=== PATIENT | female | born 1985 | race African-American/Black ===

== ENCOUNTER 2018-06-17 08:48 | Emergency (ER) | payer SELFPAY ==
[~2018-06-17] VITALS: Ht 165.1 cm; Wt 108.9 kg
[2018-06-17 09:12] VITALS: BP 141/94
[2018-06-17] MEDS ORDERED: NAPROXEN 500 MG TABLET PO STA (09:41)
[2018-06-17] MEDS ORDERED: SMZ/TMP 800/160MG TABLET. PO ONE (09:45)
[2018-06-17] MEDS ORDERED: HYDROcodone/APAP 5/325MG 1 TAB TABLET PO ONE (09:45)
[2018-06-17] MEDS ORDERED: SULF1TAB24 PO (09:50)
[2018-06-17] MEDS ORDERED: DICL50TA4 PO (09:50)
[2018-06-17] MEDS ORDERED: GABA600T7 PO (09:50)
--- NOTE | 2018-06-17 09:51 | PHYS DOC ---
Past Medical History Past Medical History: Asthma Past Surgical History: No Surgical History Alcohol Use: None Drug Use: None Adult General Chief Complaint Chief Complaint: LOWER EXTREMITY SWELLING HPI HPI Patient is a 33 year old female with no significant medical history who presents to the ED today with left lateral foot redness that began 2 days ago. Patient also feels her bilateral feet are swollen. Denies any injury. Denies any chest pain or shortness of breath denies any fever. Denies being on any hormones, denies any hemoptysis. Denies any previous history of DVTs or PEs. Denies any shortness of breath. Review of Systems Review of Systems Constitutional: Denies fever or chills [] Eyes: Denies change in visual acuity, redness, or eye pain [] HENT: Denies nasal congestion or sore throat [] Respiratory: Denies cough or shortness of breath [] Cardiovascular: No additional information not addressed in HPI [] GI: Denies abdominal pain, nausea, vomiting, bloody stools or diarrhea [] : Denies dysuria or hematuria [] Musculoskeletal: Reports left lateral foot redness, the lateral lower extremity swelling. Integument: Denies rash or skin lesions [] Neurologic: Denies headache, focal weakness or sensory changes [] All other systems were reviewed and found to be within normal limits, except as documented in this note. Allergies Allergies Allergies Coded Allergies Type Severity Reaction Last Updated Verified No Known Drug Allergies 05/29/14 No Physical Exam Physical Exam Constitutional: Well developed, well nourished, no acute distress, non-toxic appearance. [] HENT: Normocephalic, atraumatic, bilateral external ears normal, oropharynx moist, no oral exudates, nose normal. [] Eyes: PERRLA, EOMI, conjunctiva normal, no discharge. [] Neck: Normal range of motion, no tenderness, supple, no stridor. [] Cardiovascular:Heart rate regular rhythm, no murmur [] Lungs & Thorax: Bilateral breath sounds clear to auscultation [] Abdomen: Bowel sounds normal, soft, no tenderness, no masses, no pulsatile masses. [] Skin: Warm, dry, no erythema, no rash. [] Back: No tenderness, no CVA tenderness. [] Extremities: No obvious edema noted to bilateral lower extremities, there is slight cellulitis approximately 4 x 4 cm on the left lateral foot, the area is warm, no drainage. Full range of motion to bilateral lower extremities, negative Homans sign to bilateral lower extremities. +2 bilateral pedal pulses. Cap refill less than 2 seconds bilateral lower extremities. Neurologic: Alert and oriented X 3, normal motor function, normal sensory function, no focal deficits noted. [] Psychologic: Affect normal, judgement normal, mood normal. [] Current Patient Data Vital Signs Vital Signs Date Time Temp Pulse Resp B/P (MAP) Pulse Ox O2 Delivery O2 Flow Rate FiO2 06/17/18 09:12 98.8 94 16 141/94 (110) 98 Room Air 98.8 EKG EKG [] Radiology/Procedures Radiology/Procedures [] Course & Med Decision Making Course & Med Decision Making Pertinent Labs and Imaging studies reviewed. (See chart for details) This is a 33-year-old female patient presenting to the ED today with cellulitis on the left lateral foot. Tetanus up-to-date. Discharged on Bactrim for stress given in the ED. Encouraged to elevate bilateral lower extremities. Follow-up with PCP in the course of next week. Dragon Disclaimer Dragon Disclaimer This electronic medical record was generated, in whole or in part, using a voice recognition dictation system. Departure Departure Impression: Primary Impression: Cellulitis of left foot Disposition: 01 HOME, SELF-CARE Condition: STABLE Referrals: NO PCP (PCP) Follow-up with your doctor in one week Patient Instructions: Cellulitis, [id number] Additional Instructions: You were evaluated in the emergency, and noted to have cellulitis on the left lateral foot. Take the prescribed antibiotics until completed. Follow-up with your doctor next week. Come back to the ED at any point symptoms worsen. Scripts Diclofenac Sodium (DICLOFENAC SODIUM) 50 Mg Tablet. 1 TAB PO BID, #30 TAB 0 Refills Prov: CARLOS ALBERTO CRYSTAL APRN 06/17/18 Gabapentin (GABAPENTIN) 600 Mg Tablet 600 MG PO TID for NEUROGENIC PAIN, #30 TAB Prov: CARLOS ALBERTO CRYSTAL APRN 06/17/18 Sulfamethoxazole/Trimethoprim (BACTRIM DS TABLET) 1 Each Tablet 1 TAB PO BID, #20 TAB Prov: CARLOS ALBERTO CRYSTAL APRN 06/17/18 CARLOS ALBERTO CRYSTAL APRN Jun 17, 2018 09:50
== END 2018-06-17 10:04 | disposition home or self-care (01) ==
LOC: ER 08:48
DX: L03.116 Cellulitis of left lower limb (principal); J45.909 Unspecified asthma, uncomplicated
CPT/HCPCS: 99284

== ENCOUNTER 2018-08-04 21:26 | Emergency (ER) | payer SELFPAY ==
[~2018-08-04] VITALS: Ht 165.1 cm; Wt 99.8 kg
[~2018-08-04 21:26] MED LIST: DICL50TA4 PO; GABA600T7 PO; SULF1TAB24 PO
[2018-08-04 21:40] VITALS: BP 162/72
[2018-08-04] MEDS ORDERED: DEXAMETHASONE SOD PHOS 4 MG/ML VIAL IM ONE (22:00)
[2018-08-04] MEDS ORDERED: ACETAMINOPHEN 500 MG TABLET PO ONE (22:00)
[2018-08-04] MEDS ORDERED: AMOX500C PO (22:00)
[2018-08-04] MEDS ORDERED: PRED50TA PO (22:00)
[2018-08-04] MEDS ORDERED: IBUPROFEN 400 MG TABLET. PO ONE (22:00)
--- NOTE | 2018-08-04 22:01 | PHYS DOC ---
Past Medical History Past Medical History: Asthma (PRAMOD CRAIG) Past Surgical History: No Surgical History (PRAMOD CRAIG) Alcohol Use: None Drug Use: None (PRAMOD CRAIG) Adult General Chief Complaint Chief Complaint: FEVER HPI HPI Patient is a 33 year old female presents to the ED complaining of sore throat 2 days ago. Patient states that she developed throat pain while she was at work. Describes the pain as sharp. Rates the pain as 7 out of 10. Associated symptoms include fever. States she has not taken any medications over-the- counter. Denies cough, difficulty swallowing, tongue swelling, lip swelling, chest pain, shortness of breath, nausea/vomiting, conjunctivitis or rash. (PRAMOD CRAIG) Review of Systems Review of Systems Constitutional: Complains of fever. Denies chills [] Eyes: Denies change in visual acuity, redness, or eye pain [] HENT: Complains of sore throat. Denies nasal congestion. Respiratory: Denies cough or shortness of breath [] Cardiovascular: No additional information not addressed in HPI [] GI: Denies abdominal pain, nausea, vomiting, bloody stools or diarrhea [] : Denies dysuria or hematuria [] Musculoskeletal: Denies back pain or joint pain [] Integument: Denies rash or skin lesions [] Neurologic: Denies headache, focal weakness or sensory changes [] All other systems were reviewed and found to be within normal limits, except as documented in this note. (PRAMOD CRAIG) Current Medications Current Medications Current Medications Medications (Trade) Dose Ordered Sig/Cassandra Start Time Stop Time Status Last Admin Dose Admin Acetaminophen (Tylenol) 1,000 mg 1X ONCE 08/04/18 22:00 08/04/18 22:21 DC 08/04/18 22:15 1,000 MG Amoxicillin (Amoxil) 500 mg 1X ONCE 08/04/18 22:30 08/04/18 22:30 DC 08/04/18 22:21 500 MG Dexamethasone Sodium Phosphate (Decadron) 10 mg 1X ONCE 08/04/18 22:00 08/04/18 22:01 DC 08/04/18 22:15 10 MG Ibuprofen (Motrin) 800 mg 1X ONCE 08/04/18 22:00 08/04/18 22:21 DC 08/04/18 22:15 800 MG (DEANA REYNOLDS MD) Allergies Allergies Allergies Coded Allergies Type Severity Reaction Last Updated Verified No Known Drug Allergies 05/29/14 No (DEANA REYNOLDS MD) Physical Exam Physical Exam Constitutional: Well developed, well nourished, no acute distress, non-toxic appearance. [] HENT: Normocephalic, atraumatic, bilateral external ears normal, oropharynx moist, Mild pharyngeal erythema. uvula midline. no exudate. no peritonsillar abscess. nose normal. [] Eyes: PERRLA, EOMI, conjunctiva normal, no discharge. [] Neck: Normal range of motion, no tenderness, supple, no stridor. [] Cardiovascular:Heart rate regular rhythm, no murmur [] Lungs & Thorax: Bilateral breath sounds clear to auscultation [] Skin: Warm, dry, no erythema, no rash. [] Back: No tenderness, no CVA tenderness. [] Extremities: No tenderness, no cyanosis, no clubbing, ROM intact, no edema. [] Neurologic: Alert and oriented X 3, normal motor function, normal sensory function, no focal deficits noted. [] Psychologic: Affect normal, judgement normal, mood normal. [] (PRAMOD CRAIG) Current Patient Data Vital Signs Vital Signs Date Time Temp Pulse Resp B/P (MAP) Pulse Ox O2 Delivery O2 Flow Rate FiO2 08/04/18 21:40 102.1 98 18 162/72 (102) 99 Room Air 102.1 (DEANA REYNOLDS MD) EKG EKG [] (PRAMOD CRAIG) Radiology/Procedures Radiology/Procedures [] (PRAMOD CRAIG) Course & Med Decision Making Course & Med Decision Making Pertinent Labs and Imaging studies reviewed. (See chart for details) []Fever improved in the ED. Patient states she is feeling much better. Tolerating by mouth. Discussed symptomatic treatment and follow-up with PCP if symptoms persist. Discussed reasons to return to the ED. Patient understands and agrees with plan. (PRAMOD CRAIG) Course & Med Decision Making Staff Physician Addendum: I was working in the ER during the course of this patient's visit. I was available for consultation as needed, but I was not directly involved in the care of this patient. (DEANA REYNOLDS MD) Dragon Disclaimer Dragon Disclaimer This electronic medical record was generated, in whole or in part, using a voice recognition dictation system. (PRAMOD CRAIG) Departure Departure Impression: Primary Impression: Pharyngitis Disposition: HOME, SELF-CARE Condition: STABLE Referrals: NO PCP (PCP) PONCHO NEWMAN MD Patient Instructions: Viral and Bacterial Pharyngitis Scripts Prednisone (PREDNISONE) 50 Mg Tablet 1 TAB PO DAILY, #5 TAB Prov: PRAMOD CRAIG 08/04/18 Amoxicillin (AMOXICILLIN) 500 Mg Capsule 1 CAP PO TID for 10 Days, #30 CAP Prov: PRAMOD CRAIG 08/04/18 PRAMOD CRAIG Aug 04, 2018 22:00 DEANA REYNOLDS MD Aug 08, 2018 20:06
[2018-08-04] MEDS ORDERED: AMOXICILLIN 250 MG CAPSULE. PO ONE (22:30)
== END 2018-08-04 22:26 | disposition home or self-care (01) ==
LOC: ER 21:26
DX: J02.9 Acute pharyngitis, unspecified (principal); R50.9 Fever, unspecified; J45.909 Unspecified asthma, uncomplicated
CPT/HCPCS: 96372; 99284; J1100

== ENCOUNTER 2020-03-05 06:10 | Emergency (ER) | payer SELFPAY ==
[~2020-03-05] VITALS: Ht 165.1 cm; Wt 122.7 kg
[~2020-03-05 06:10] MED LIST changes: +AMOX500C PO; +PRED50TA PO
[2020-03-05 06:54] VITALS: BP 167/99
[2020-03-05] MEDS ORDERED: GABA300C18 PO (07:07)
[2020-03-05] MEDS ORDERED: HYDR-3164 PO (07:07)
[2020-03-05] MEDS ORDERED: PRED20TA PO (07:07)
--- NOTE | 2020-03-05 07:08 | PHYS DOC ---
Past Medical History Past Medical History: Asthma Past Surgical History: No Surgical History Smoking Status: Never Smoker Alcohol Use: None Drug Use: None General Adult EDM: Chief Complaint: LOWER EXT PAIN HPI: HPI: Patient is a 35 year old female who presents with left foot swelling and pain since 2300 last night. Pain is a 10/10 with "pins and needles" quality that travels up to knee. Red "spots" present on bilateral legs with pain flare up. Denies trauma, back pain. Patient had similar episode in 2019 and was given Gabapentin. Denies . Review of Systems: Review of Systems: Constitutional: Denies fever or chills Eyes: Denies redness or eye pain HENT: Denies nasal congestion or sore throat Respiratory: Denies cough or shortness of breath Cardiovascular: Denies chest pain or palpitations GI: Denies abdominal pain, nausea, or vomiting : Denies dysuria or hematuria Musculoskeletal: Denies back pain or joint pain; reports left leg pain below knee Integument: Reports red spots that present simultaneously with pain. Neurologic: Denies headache, focal weakness or sensory changes Complete systems were reviewed and found to be within normal limits, except as documented in this note. Allergies: Allergies: Allergies Coded Allergies Type Severity Reaction Last Updated Verified No Known Drug Allergies 05/29/14 No Physical Exam: PE: Constitutional: Well developed, well nourished, no acute distress, non-toxic appearance HENT: Normocephalic, atraumatic Eyes: Conjunctiva normal, no discharge Neck: Normal range of motion, no tenderness, supple Lungs & Thorax: No respiratory distress, equal chest rise and fall Skin: Warm, dry, no erythema, no rash Back: No tenderness, no CVA tenderness Extremities: ROM intact, no edema. Tenderness left LE below knee. Pedal pulses intact bilaterally +2. Cap refill normal bilaterally. Neurologic: Alert and oriented X 3, normal motor function, normal sensory function, no focal deficits noted Psychologic: Affect normal, judgment normal Current Patient Data: Vital Signs: Vital Signs Date Time Temp Pulse Resp B/P (MAP) Pulse Ox O2 Delivery O2 Flow Rate FiO2 03/05/20 06:20 98.3 95 19 154/89 (110) 100 Room Air 98.3 EKG: EKG: [] Radiology/Procedures: Radiology/Procedures: [] Course & Med Decision Making: Course & Med Decision Making Patient is a 35 year old female who presents with left foot swelling and pain. Pain is a 10/10 with "pins and needles" quality that travels up to knee. Red "sp ots" present on bilateral legs with pain flare up. Denies trauma or back pain. No significant edema noted. Distal pulses intact. Symptoms and HPI more likely neuropathy in nature. Patient given oral steroids and ibuprofen. Patient given a script for ofe apentin. Crutches provided for support. Patient stable for discharge with outpatient follow-up with PCP and pain management. Referrals for free pain management clinics provided. Discussed findings and plan with patient, who acknowledges understanding and agreement. [] Dragon Disclaimer: Dragon Disclaimer: This electronic medical record was generated, in whole or in part, using a voice recognition dictation system. Departure Departure Impression: Primary Impression: Neuropathy Disposition: 01 DC HOME SELF CARE/HOMELESS Condition: STABLE Referrals: NO PCP (PCP) RAVINDRA CHATMAN MD Patient Instructions: Crutch Use, [id number], Pain, Neuropathic Additional Instructions: May also use over the counter Ibuprofen for pain and discomfort. Scripts Hydrocodone/Apap 5-325 (NORCO 5-325 TABLET) 1 Each Tablet 0.5-1 TAB PO PRN Q6HRS PRN for PAIN, #10 TAB 0 Refills Prov: PONCHO BETANCOURT DO 03/05/20 Prednisone (PREDNISONE) 20 Mg Tablet 2 TAB PO DAILY, #8 TAB Start tomorrow, Thursday03/06/2020 Prov: PONCHO BETANCOURT DO 03/05/20 Gabapentin (GABAPENTIN ) 300 Mg Capsule 300 MG PO TID for NEUROGENIC PAIN, #30 CAP Start with 300mg qday on day 1, then increase to 300mg BID on day 2, and then increased to 300mg TID going forward. Prov: PONCHO BETANCOURT DO 03/05/20 PONCHO BETANCOURT DO Mar 05, 2020 07:08
[2020-03-05] MEDS ORDERED: IBUPROFEN 200 MG TABLET. PO ONE (07:15)
[2020-03-05] MEDS ORDERED: DEXAMETHASONE 4 MG TABLET PO ONE (07:15)
== END 2020-03-05 07:20 | disposition home or self-care (01) ==
LOC: ER 06:10
DX: G62.9 Polyneuropathy, unspecified (principal); M79.672 Pain in left foot; R60.0 Localized edema; J45.909 Unspecified asthma, uncomplicated
CPT/HCPCS: 99283

== ENCOUNTER 2020-07-03 07:26 | Emergency (ER) | payer OTHER ==
[~2020-07-03] VITALS: Ht 165.1 cm; Wt 109.0 kg
[~2020-07-03 07:26] MED LIST changes: +GABA300C18 PO; +HYDR-3164 PO; +PRED20TA PO
[2020-07-03 07:30] VITALS: BP 159/91
[2020-07-03] MEDS ORDERED: DEXAMETHASONE 4 MG TABLET PO SCH (08:00)
[2020-07-03] MEDS ORDERED: KETOROLAC 60 MG/2 ML VIAL. IM ONE (08:00)
--- NOTE | 2020-07-03 08:03 | PHYS DOC ---
Past Medical History Past Medical History: Asthma Past Surgical History: No Surgical History Smoking Status: Never Smoker Alcohol Use: None Drug Use: None General Adult EDM: Chief Complaint: LOWER EXT PAIN HPI: HPI: 35-year-old AA female past medical history of asthma, presents the ED with complaints of left ankle swelling that started while she was at work overnight ([employer] employee), hasn't taken anything for the pain but reports it hurts to walk on. Patient states she has had the symptoms before and was seen in the ED. Attempted to be seen by specialist but was told she needs a referral from her primary care physician which she has none. Has an IUD. Only medication is an albuterol inhaler. Denies any recent sore throat or upper respiratory infections. EMR was reviewed and patient was seen in the ED 01/2020 for left foot neuropathy and 05/2018 for left foot cellulitis-pt states her pain doesn't radiate but that today is the "same problem." No history of septic joints or arthritis diagnoses. Denies any trauma/injury to left lower extremity. Review of Systems: Review of Systems: Constitutional: Denies fever or chills. [] Eyes: Denies change in visual acuity. [] HENT: Denies nasal congestion or sore throat. [] Respiratory: Denies cough or shortness of breath. [] Cardiovascular: Denies chest pain or edema. [] GI: Denies abdominal pain, nausea, vomiting, bloody stools or diarrhea. [] : Denies dysuria or hematuria Musculoskeletal: Denies back pain or joint deformity Integument: Denies diaphoresis or spreading rash Neurologic: Denies headache, neck stiffness, focal weakness or sensory changes. [] Endocrine: Denies polyuria or polydipsia. [] Lymphatic: Denies swollen glands. [] Psychiatric: Denies depression or anxiety. [] Heart Score: C/O Chest Pain: No Risk Factors: Risk Factors: DM, Current or recent (<one month) smoker, HTN, HLP, family history of CAD, obesity. Risk Scores: Score 0 - 3: 2.5% MACE over next 6 weeks - Discharge Home Score 4 - 6: 20.3% MACE over next 6 weeks - Admit for Clinical Observation Score 7 - 10: 72.7% MACE over next 6 weeks - Early Invasive Strategies Current Medications: Current Medications Medications (Trade) Dose Ordered Sig/Cassandra Start Time Stop Time Status Last Admin Dose Admin Dexamethasone (Decadron) 10 mg [id number] 07/03/20 08:00 UNV Allergies: Allergies: Allergies Coded Allergies Type Severity Reaction Last Updated Verified No Known Drug Allergies 05/29/14 No Physical Exam: PE: Constitutional: Well developed, well nourished, no acute distress, non-toxic appearance. HENT: Normocephalic, atraumatic, Eyes: EOMI, conjunctiva normal, no discharge. Neck: Normal range of motion, supple, Cardiovascular: S1/2 present, regular rhythm Lungs & Thorax: Speaking in full sentences, bilateral equal chest rise, no tachypnea or increased work of breathing Abdomen: soft, no tenderness, Skin: Warm, dry, no erythema, no rash. [] Back: No tenderness, no CVA tenderness. [] Extremities: +lateral proximal ankle edema w/ ttp, DP/PT intact bl, shiny/raised/ttp erythematous/purple nodules over both lower shins-states these "come and go," no unilateral calf edema, no pain in either knee or toes Neurologic: Alert and oriented X 3, normal motor function, normal sensory function, no focal deficits noted. [] Psychologic: Affect normal, judgement normal, mood normal. [] Current Patient Data: Vital Signs: Vital Signs Date Time Temp Pulse Resp B/P (MAP) Pulse Ox O2 Delivery O2 Flow Rate FiO2 07/03/20 07:30 97.5 92 18 159/91 (113) 96 Room Air 97.5 EKG: EKG: [] Radiology/Procedures: Radiology/Procedures: []IMAGING REPORT Signed PATIENT: DOMINIK FAM ACCOUNT: [id number] : 1985 LOCATION: ER AGE: 35 SEX: F EXAM STATUS: REG ER ORD. PHYSICIAN: FREEDOM MCKEON DO REASON: swellig/pain PROCEDURE: FOOT LEFT 2V EXAM: XR FOOT_LEFT 2 VIEWS, XR EXAM OF ANKLE_LEFT 3V 07/03/2020 8:52 AM CLINICAL INDICATION: Swelling, pain on lateral malleolus COMPARISON: None TECHNIQUE: 3 views of the left ankle and 2 views of the left foot FINDINGS: Left ankle: No acute fracture. Alignment is normal. Ankle mortise is symmetric and talar dome is intact. There is mild medial and lateral soft tissue swelling. Left foot: No acute fracture. Alignment is normal. Joint spaces are maintained. Mild dorsal soft tissue swelling of the forefoot. IMPRESSION: No acute osseous abnormality of the left foot or left ankle. Mild soft tissue swelling along the dorsal forefoot and medial and lateral ankle. Electronically signed by: Dory Joshua MD (07/03/2020 9:33 AM) [id number] DICTATED and SIGNED BY: DORY JOSHUA MD DATE: 07/03/20 [id number] 0 IMAGING REPORT Signed PATIENT: DOMINIK FAM ACCOUNT: [id number] : 1985 LOCATION: ER AGE: 35 SEX: F EXAM STATUS: REG ER ORD. PHYSICIAN: FREEDOM MCKEON DO REASON: joint pain/rash = erythema nodosum w//asthma? vs sarcoid PROCEDURE: CHEST AP ONLY AP chest. HISTORY: Joint pain, rash, asthma versus sarcoid AP view was taken of the chest. Heart is normal in size. There is no pleural effusion. There are no acute infiltrates. IMPRESSION: 1. No acute chest disease. Electronically signed by: Josué Leiva MD (07/03/2020 9:07 AM) [id number] DICTATED and SIGNED BY: JOSUÉ LEIVA MD DATE: 07/03/20 [id number] 0 Course & Med Decision Making: Course & Med Decision Making Pertinent Labs and Imaging studies reviewed. (See chart for details) 35-year-old female with concern for erythema nodosum and inflammatory arthritis, suspect asthma? vs sarcoid. Patient with asymptomatic hypertension. Images of left ankle show no joint effusion, no hilar lymphadenopathy on chest x-ray. Will discharge home with strict ED return precautions were given for severe pain, neurologic deficits or worsening rash. Encouraged urgent outpatient follow-up with PMD in the next 1 to 2 weeks, consider pulmonology for formal lung diagnosis. Life-threatening processes were considered but are low suspicion at this time, given history, physical exam and ED workup. Pt was educated on all prescription medications and adverse effects. All patient's questions were answered and pt was stable at time of discharge. Life/limb-threatening differential includes but is not limited to, avascular necrosis, septic arthritis, malignancy, compartment syndrome, fracture/ligamentous injury/overuse, decompression sickness, seronegative spondyloarthropathies, trauma including dislocation/fracture, Lyme disease, lupus, arthritis differentials, gout/pseudogout or decompression sickness. I spoken with the patient and her caregivers. I explained the patient's condition, diagnoses and treatment plan based on the information available to me at this time. I have answered the patient and her caregiver's questions and addressed any concerns. The patient and her caregivers have a good understanding of patient's diagnosis, condition and treatment plan as can be expected at this point. Vital signs have been stable. Patient's condition is stable and appropriate for discharge from the emergency department. Patient will pursue further outpatient evaluation with primary care physician or other designated or consulting physician as outlined in the discharge instructions. The patient and/or caregivers are agreeable to this plan of care and follow-up instructions have been explained in detail. The patient and/or caregivers have received these instructions in written form and have expressed an understanding of the discharge instructions. The patient and/or caregivers are aware that any significant change of condition or worsening of symptoms should prompt immediate return to this or the closest emergency department or call to 1. Adia Disclaimer: Adia Disclaimer: This electronic medical record was generated, in whole or in part, using a voice recognition dictation system. 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 Hypertension Disposition: 01 DC HOME SELF CARE/HOMELESS Condition: STABLE Referrals: NO PCP (PCP) Follow-up with primary care physician in 1 to 2 weeks FOLLOW UP WITH FAMILY MEDICINE: Family Medicine Address: [address] [facility], [facility] [address] [place] [address] Patient Instructions: Arthritis, Nonspecific, Erythema Nodosum-Brief, Hypertension Additional Instructions: FOLLOW UP WITH: [facility] Address: [address] [facility] [address] [place] [address] EMERGENCY DEPARTMENT GENERAL DISCHARGE INSTRUCTIONS Thank you for coming to [facility] Emergency Department (ED) today and trusting us with you care. We trust that you had a positive experience in our Emergency Department. If you wish to speak to the department management, you may call the Director at [phone]. YOUR FOLLOW UP INSTRUCTIONS ARE FOLLOWS: 1. Do you have a private Doctor? If you do not have a private doctor, please ask for a resource list of physicians or clinics that may be able to assist you with follow up care. 2. The Emergency Physicain has interpreted your x-rays. The X-Ray specialist w gera also review them. If there is a change in the findings, you will be notified in 48 hours when at all possible. 3. A lab test or culture has been done, your results will be reviewed and you will be notified if you need a change in treatment. ADDITIONAL INSTRUCTIONS AND INFORMATION: 1. Your care today has been supervised by a physician who is specially trained in emergency care. Many problems require more than one evaluation for a complete diagnosis and treatment. We recommend that you schedule your follow up appointment as recommended to ensure complete treatment of you illness or injury. If you are unable to obtain follow up care and continue to have a problem, or if your condition worsens, we recommend that you return to the ED. 2. We are not able to safely determine your condition over the phone nor are we able to give sound medical advice over the phone. For these safety reasons, if you call for medical advice we will ask you to come to the ED for further evaluation. 3. If you have any questions regarding these discharge instructions please call the ED at [phone]. SAFETY INFORMATION: In the interest of safety, wellness, and injury prevention; we encourage you to wear your sealbelt, if you smoke; quite smoking, and we encourage family to use a protective helmet for bicycling and other sporting events that present an increased risk for head injury. IF YOUR SYMPTOMS WORSEN OR NEW SYMPTOMS DEVELOP, OR YOU HAVE CONCERNS ABOUT YOUR CONDITION; OR IF YOUR CONDITION WORSENS WHILE YOU ARE WAITING FOR YOUR FOLLOW UP APPOINTMENT; EITHER CONTACT YOUR PRIMARY CARE DOCTOR, THE PHYSICIAN WHOSE NAME AND NUMBER YOU WERE GIVEN, OR RETURN TO THE ED IMMEDIATELY. Scripts Ketoprofen (KETOPROFEN) 75 Mg Capsule 75 MG PO TID PRN for joint pain, #20 CAP Prov: FREEDOM MCKEON DO 07/03/20 Methylprednisolone (MEDROL) 4 Mg Tab.ds.pk 1 PKG PO UD for inflammation, #1 PKG Prov: FREEDOM MCKEON DO 07/03/20 FREEDOM MCKEON DO Jul 03, 2020 08:03
[2020-07-03] MEDS ORDERED: METH4TAB2 PO (08:15)
[2020-07-03] MEDS ORDERED: KETO75CA PO (08:15)
[2020-07-03 08:26] LABS: BASO # 0.1 x10^3/uL (0.0-0.2); BASO % 1 % (0-3); EOS # 0.1 x10^3/uL (0.0-0.7); EOS % 2 % (0-3); HEMATOCRIT 41.1 % (36.0-47.0); HEMOGLOBIN 13.6 g/dL (12.0-15.5); LYMPH # 1.5 x10^3/uL (1.0-4.8); LYMPH % 21 % (24-48); MEAN CORPUSCULAR HEMOGLOBIN 28 pg (25-35); MEAN CORPUSCULAR HGB CONC 33 g/dL (31-37); MEAN CORPUSCULAR VOLUME 83 fL (79-100); MONO # 0.5 x10^3/uL (0.0-1.1); MONO % 6 % (0-9); NEUT # 5.1 x10^3/uL (1.8-7.7); NEUT % 70 % (31-73); PLATELET COUNT 264 x10^3/uL (140-400); RED BLOOD COUNT 4.94 x10^6/uL (3.50-5.40); RED CELL DISTRIBUTION WIDTH 14.2 % (11.5-14.5); WHITE BLOOD COUNT 7.3 x10^3/uL (4.0-11.0)
[2020-07-03 08:38] LABS: CALCIUM 8.8 mg/dL (8.5-10.1); CREATININE 0.8 mg/dL (0.6-1.0); GFR 99.4; POTASSIUM 3.5 mmol/L (3.5-5.1)
[2020-07-03 08:44] LABS: ALBUMIN 3.5 g/dL (3.4-5.0); ALBUMIN/GLOBULIN RATIO 0.7 (1.0-1.7); TOTAL BILIRUBIN 0.5 mg/dL (0.2-1.0); TOTAL PROTEIN 8.2 g/dL (6.4-8.2)
[2020-07-03 08:48] LABS: PREG TEST PT QUAL NEGATIVE (NEG)
--- NOTE | 2020-07-03 09:09 | RAD ---
AP chest. HISTORY: Joint pain, rash, asthma versus sarcoid AP view was taken of the chest. Heart is normal in size. There is no pleural effusion. There are no a cute infiltrates. IMPRESSION: 1. No acute chest disease. Electronically signed by: Josué Leiva MD (07/03/2020 9:07 AM) [id number]
--- NOTE | 2020-07-03 09:36 | RAD ---
EXAM: XR FOOT_LEFT 2 VIEWS, XR EXAM OF ANKLE_LEFT 3V 07/03/2020 8:52 AM CLINICAL INDICATION: Swelling, pain on lateral malleolus COMPARISON: None TECHNIQUE: 3 views of the left ankle and 2 views of the left foot FINDINGS: Left ankle: No acute fracture. Alignment is normal. Ankle mortise is symmetric and talar dome is inta ct. There is mild medial and lateral soft tissue swelling. Left foot: No acute fracture. Alignment is normal. Joint spaces are maintained. Mild dorsal soft tiss ue swelling of the forefoot. IMPRESSION: No acute osseous abnormality of the left foot or left ankle. Mild soft tissue swelling a long the dorsal forefoot and medial and lateral ankle. Electronically signed by: Dory Joshua MD (07/03/2020 9:33 AM) [id number]
== END 2020-07-03 10:25 | disposition home or self-care (01) ==
LOC: ER 07:26
DX: L52 Erythema nodosum (principal); M19.072 Primary osteoarthritis, left ankle and foot; I10 Essential (primary) hypertension; R07.89 Other chest pain; J45.909 Unspecified asthma, uncomplicated
CPT/HCPCS: 36415; 71045; 73610; 73620; 80053; 84703; 85025; 96372; 99284; J1885

== ENCOUNTER 2021-02-13 22:20 | Emergency (ER) | payer BC ==
[~2021-02-13] VITALS: Ht 165.1 cm; Wt 100.0 kg
[~2021-02-13 22:20] MED LIST changes: +KETO75CA PO; +METH4TAB2 PO
[2021-02-14 00:46] VITALS: BP 114/69
[2021-02-14] MEDS ORDERED: METR-34 PO (00:49)
[2021-02-14] MEDS ORDERED: FLUC150T PO (00:49)
--- NOTE | 2021-02-14 00:49 | PHYS DOC ---
Past Medical History Past Medical History: Asthma Past Surgical History: No Surgical History Smoking Status: Never Smoker Alcohol Use: None Drug Use: None General Adult EDM: Chief Complaint: VAGINAL PROBLEM HPI: HPI: Patient is a 36 year old female who presents with 2 days of vaginal discharge and vaginal itching. Green, thick discharge. Denies dysuria, urgency, frequency. No flank pain. No fever/chills. No nausea/vomiting. No abdominal pain. Does have a history of GC/chlamydia greater than a year ago. Was fully treated. Has not been sexually active in the past 2 months. Reports consistent condom usage. Review of Systems: Review of Systems: Constitutional: Denies fever or chills. [] Eyes: Denies change in visual acuity. [] HENT: Denies nasal congestion or sore throat. [] Respiratory: Denies cough or shortness of breath. [] Cardiovascular: Denies chest pain or edema. [] GI: Denies abdominal pain, nausea, vomiting, bloody stools or diarrhea. [] : Reports vaginal discharge and vaginal itching Musculoskeletal: Denies back pain or joint pain. [] Integument: Denies rash. [] Neurologic: Denies headache, focal weakness or sensory changes. [] Endocrine: Denies polyuria or polydipsia. [] Lymphatic: Denies swollen glands. [] Psychiatric: Denies depression or anxiety. [] Heart Score: C/O Chest Pain: No Allergies: Allergies: Allergies Coded Allergies Type Severity Reaction Last Updated Verified No Known Drug Allergies 05/29/14 No Physical Exam: PE: Constitutional: Well developed, well nourished, no acute distress, non-toxic appearance. [] HENT: Normocephalic, atraumatic, bilateral external ears normal, oropharynx moist, no oral exudates, nose normal. [] Eyes: PERRLA, EOMI, conjunctiva normal, no discharge. [] Neck: Normal range of motion, no tenderness, supple, no stridor. [] Cardiovascular:Heart rate regular rhythm, no murmur [] Lungs & Thorax: Bilateral breath sounds clear to auscultation [] Abdomen: Bowel sounds normal, soft, no tenderness, no masses, no pulsatile mass es. [] Pelvic: Normal external genitalia. No rashes. Normal appearance of the cervix. Thick/clumpy green discharge noted Skin: Warm, dry, no erythema, no rash. [] Back: No tenderness, no CVA tenderness. [] Extremities: No tenderness, no cyanosis, no clubbing, ROM intact, no edema. [] Neurologic: Alert and oriented X 3, normal motor function, normal sensory function, no focal deficits noted. [] Psychologic: Affect normal, judgement normal, mood normal. [] Current Patient Data: Labs: Laboratory Tests Test 02/13/21 23:55 POC Urine HCG, Qualitative Hcg negative (Negative) Microbiology 02/14/21 Wet Prep - Final, Complete Vital Signs: Vital Signs Date Time Temp Pulse Resp B/P (MAP) Pulse Ox O2 Delivery O2 Flow Rate FiO2 02/13/21 23:41 97.4 70 18 133/80 (97) 99 Room Air 97.4 EKG: EKG: [] Radiology/Procedures: Radiology/Procedures: [] Course & Med Decision Making: Course & Med Decision Making Pertinent Labs and Imaging studies reviewed. (See chart for details) Patient a 36-year-old female presents with 2 days of thick vaginal discharge and vaginal itching. No other symptoms. Wet prep consistent with bacterial vaginosis as well as potentially a yeast infection. We will treat with metronidazole and a single dose of Diflucan. GC/chlamydia sent, but will not treat empirically at this time. Adia Disclaimer: Adia Disclaimer: This electronic medical record was generated, in whole or in part, using a voice recognition dictation system. Departure Departure Impression: Primary Impression: Bacterial vaginosis Additional Impression: Vaginal yeast infection Referrals: NO PCP (PCP) Patient Instructions: Bacterial Vaginosis Additional Instructions: It appears that you had bacterial vaginosis and a yeast infection. Neither of these are sexually transmitted in nature. Please take medications as prescribed. Do not use alcohol while using metronidazole. It can cause you to be severely ill. Please follow-up with your PCP if you have ongoing concerns. Scripts Metronidazole (METRONIDAZOLE) 500 Mg Tablet 1 TAB PO BID for 7 Days, #14 TAB 0 Refills Prov: ALMITA DAMON MD 02/14/21 Fluconazole (DIFLUCAN) 150 Mg Tablet 1 TAB PO ONCE, #1 TAB 1 Refill Prov: ALMITA DAMON MD 02/14/21 ALMITA DAMON MD Feb 14, 2021 00:49
[2021-02-15 22:08] LABS: GC PROBE Negative (Negative)
== END 2021-02-14 01:02 | disposition home or self-care (01) ==
LOC: ER 22:20
DX: N76.0 Acute vaginitis (principal); B96.89 Other specified bacterial agents as the cause of diseases classified elsewhere; B37.3 Candidiasis of vulva and vagina; J45.909 Unspecified asthma, uncomplicated
CPT/HCPCS: 81025; 87491; 87591; 99284; Q0111

== ENCOUNTER 2021-05-20 17:00 | Emergency (ER) | payer BC ==
[~2021-05-20] VITALS: Ht 165.1 cm; Wt 103.3 kg
[~2021-05-20 17:00] MED LIST changes: +FLUC150T PO; +METR-34 PO
[2021-05-20 18:00] VITALS: BP 116/60
== END 2021-05-20 22:27 | disposition left against medical advice (07) ==
LOC: ER 17:00
DX: N89.8 Other specified noninflammatory disorders of vagina (principal); Z53.21 Procedure and treatment not carried out due to patient leaving prior to being seen by health care provider